=== PATIENT | female | born 1955 | race Two or more races ===

== ENCOUNTER 2023-11-09 08:54 | Emergency (ER) | payer MEDICAID ==
[~2023-11-09] VITALS: Ht 162.6 cm; Wt 65.0 kg
[2023-11-09 08:59] VITALS: O2SAT 100
[2023-11-09 09:55] LABS: BASOPHILS % 0.7 % (0.0-2.0); HEMATOCRIT. 31.7 % (36.0-48.0); HEMOGLOBIN. 10.2 g/dL (12.0-16.0); LYMPHOCYTES % 9.1 % (20.0-50.0); MEAN CORPUSCULAR HEMOGLOBIN 31.2 pg (28.0-32.0); MEAN CORPUSCULAR HGB CONC 32.2 g/dL (31.0-37.0); MEAN PLATELET VOLUME 7.8 fl (7.4-10.4); MONOCYTES % 8.3 % (2.0-8.0); NEUTROPHILS % 80.9 % (40.0-76.0); PLATELET 223 x1000/uL (130-400); RED BLOOD CELL COUNT 3.27 mill/uL (4.2-5.4); RED CELL DISTRIBUTION WIDTH 16.9 % (11.6-14.6)
[2023-11-09 10:03] LABS: CHLORIDE 95 mEq/L (98-107); SODIUM 131 mEq/L (136-145)
[2023-11-09 10:04] LABS: CALCIUM 10.2 mg/dL (8.7-10.4); CARBON DIOXIDE 22 mEq/L (21-32)
[2023-11-09 10:09] LABS: GLUCOSE 87 mg/dL (70-105); UREA NITROGEN BLOOD 63 mg/dL (9-23)
[2023-11-09 10:10] LABS: TROPONIN I HIGH SENSITIVITY 20 ng/L (3.0-34)
[2023-11-09 10:20] LABS: CREATININE 6.7 mg/dL (0.6-1.0)
[2023-11-09] MEDS ORDERED: DOCUSATE SODIUM 100MG CAPSULE PO PRN (11:15)
[2023-11-09] MEDS ORDERED: ONDANSETRON HCL 4MG/2ML INJ IV PRN (11:15)
[2023-11-09] MEDS ORDERED: CLONIDINE 0.1MG TABLET PO PRN (11:15)
[2023-11-09] MEDS ORDERED: MAGNESIUM/ALUMINUM HYDROXIDE/SIMETHICONE 30ML UDC PO PRN (11:15)
[2023-11-09] MEDS ORDERED: ACETAMINOPHEN 325MG TABLET PO PRN ×2 (11:15)
[2023-11-09] MEDS ORDERED: GUAIFENESIN 200MG/10ML SUGAR FREE UDC PO PRN (11:15)
[2023-11-09] MEDS ORDERED: GABA-529 PO (12:00)
[2023-11-09] MEDS ORDERED: AMLO10TA80 PO (12:00)
[2023-11-09] MEDS ORDERED: FOLI1TAB87 PO (12:00)
[2023-11-09] MEDS ORDERED: OXYC-485 PO (12:00)
[2023-11-09] MEDS ORDERED: PREG50CA64 PO (12:00)
[2023-11-09 12:53] LABS: BG BASE EXCESS -4.1 mmol/L (-2.0-2.0); BG CARBOXYHEMOGLOBIN 1.2 % (0.5-1.5); BG DEOXYHEMOGLOBIN 4.6 % (0.0-5.0); BG FRACTION INSPIRED OXYGEN 32; BG HCO3 ACT 21.4 mmol/L (22.0-26.0); BG METHEMOGLOBIN 0.3 % (0.0-1.5); BG OXYGEN SATURATION 95.3 % (92.0-98.5); BG OXYHEMOGLOBIN 93.9 % (94.0-97.0); BG PCO2 40.5 mmHg (35.0-45.0); BG PO2 84.5 mmHg (75.0-100.0); BG SAMPLE SITE RIGHT RADIAL; BG TOTAL HEMOGLOBIN 10.6 g/dL (12.0-18.0); BG VENT MODE NASAL CANNULA
[2023-11-09] MEDS ORDERED: HYDRALAZINE 20MG/ML VIAL IV PRN (14:15)
[2023-11-09] MEDS: CEFTRIAXONE 1GM/50ML 50 ML IV SCH (15:31)
[2023-11-09] MEDS: ENOXAPARIN 30MG/0.3ML SYR SUBCUT SCH (15:32)
[2023-11-09] MEDS: AZITHROMYCIN 500MG/250ML 250 ML IV SCH (15:42)
[2023-11-09 17:30] VITALS: TEMP 36.72516
[2023-11-09] MEDS ORDERED: BUDESONIDE 0.5MG/2ML NEB HHN SCH (18:00)
[2023-11-09] MEDS: AMLODIPINE 5MG TABLET PO SCH (20:19)
[2023-11-09 20:20] VITALS: BP 181/118; PULSE 111; RESP 28; O2SAT 98
== END 2023-11-09 20:27 | disposition left against medical advice (07) ==
LOC: ER 09:02 → EDBEDREQ 10:32 → EDBEDREQTM 10:32 → ER 20:27
DX: E87.70 Fluid overload, unspecified (principal); I12.0 Hypertensive chronic kidney disease with stage 5 chronic kidney disease or end stage renal disease; N18.6 End stage renal disease; Z99.2 Dependence on renal dialysis
CPT/HCPCS: 99285; 96365; 71045; 80048; 83880; 83605; 85025; 87040; 84484; 36415; 84145; 82805; 82375; 93005; 96368; 96372; 36600; J0456; J0696; J1650